=== PATIENT | male | born 1945 | race Caucasian/White ===

== ENCOUNTER 2017-10-28 07:03 | Day surgery (SDC) | payer MEDICARE ==
[2017-10-26 15:49] LABS: BASOPHILS # (AUTO) 0.1 X10'3 (0-0.2); BASOPHILS % (AUTO) 0.8 % (0-1); EOSINOPHILS # (AUTO) 0.3 X10'3 (0-0.9); EOSINOPHILS % (AUTO) 2.2 % (0-6); LYMPHOCYTES # (AUTO) 2.5 X10'3 (1.1-4.8); LYMPHOCYTES % (AUTO) 21.9 % (21-51); MEAN CORPUSCULAR HEMOGLOBIN 33.2 PG (27.0-31.0); MEAN CORPUSCULAR HGB CONC 34.5 % (33.0-36.5); MEAN CORPUSCULAR VOLUME 96.4 FL (78-98); MEAN PLATELET VOLUME 7.8 FL (7.4-10.4); MONOCYTES # (AUTO) 0.6 X10'3 (0-0.9); MONOCYTES % (AUTO) 5.6 % (2-12); NEUTROPHILS % (AUTO) 69.5 % (42-75); PRE OP HEMATOCRIT 44.8 % (42.0-52.0); PRE OP HEMOGLOBIN 15.4 g/dL (14.0-17.9); PRE OP PLATELET COUNT 208 X10'3 (140-440); RED BLOOD COUNT 4.64 X10'6 (4.70-6.10); RED CELL DISTRIBUTION WIDTH 14.5 % (11.5-14.5)
[2017-10-26 15:59] LABS: CLARITY,URINE SLIGHTLY CLOUDY (Clear); COLOR,URINE YELLOW (Yellow); GLUCOSE, URINE NEGATIVE (Neg); KETONES,URINE TRACE mg/dl (Neg); LEUKOCYTE ESTERASE ,URINE SMALL (Neg); NITRITES, URINE NEGATIVE (Neg); OCCULT BLOOD,URINE NEGATIVE (Neg); PROTEIN,URINE NEGATIVE (Neg)
[2017-10-26 16:04] LABS: ALBUMIN 3.4 G/DL (3.4-5.0); ALBUMIN/GLOBULIN RATIO 0.9 (1.1-1.5); ALKALINE PHOSPHATASE 79 IU/L (46-116); BLOOD UREA NITROGEN 23 MG/DL (7-18); BUN/CREATININE RATIO 21.7 (5.4-32.0); CALCIUM 8.8 MG/DL (8.5-10.1); CHLORIDE 102 MMOL/L (99-107); CREATININE 1.06 MG/DL (0.60-1.10); PRE OP ALT 19 U/L (30-65); PRE OP ANION GAP 6 (8-16); PRE OP AST 16 U/L (10-37); PRE OP BILIRUB, TOTAL 0.4 MG/DL (0.0-1.0); PRE OP GLUCOSE 94 MG/DL (70-104); PRE OP SODIUM 136 MMOL/L (135-145); TOTAL PROTEIN 7.2 G/DL (6.4-8.2); eGFR 69 ML/MIN
[2017-10-26 16:06] LABS: UA COLLECTION TYPE CLN CATCH MIDSTREAM
[2017-10-26 16:13] LABS: MUCUS STRANDS MANY /LPF (Neg); SQUAMOUS EPITHELIAL CELL,UR FEW /LPF (FEW)
[2017-10-26 16:14] LABS: BACTERIA,URINE NONE SEEN /HPF (Neg); RBC,URINE 0-2 /HPF (0-2)
[2017-10-28] VITALS (18 sets, daily range): BP systolic 112–142; BP diastolic 62–91
[~2017-10-28] VITALS: Ht 172.7 cm; Wt 64.0 kg
[~2017-10-28 07:03] MED LIST: ALBU8.5H4 IH; ASPI-974 PO; ATOR40TA PO; BUDE10.23 IH; CHOL400T32 PO; Cefazolin 2GM/50ML dext iso,osmotic IVPB IV ONE; DILT120C62 PO; FAMO20TA8 PO; FOLI-43 PO; famotidine 20mg tablet PO ONE; ringers solution, lacted 1,000 ML IV SCH
[2017-10-28] MEDS ORDERED: albuterol 2.5 MG/3 ML nebule NEB ONE (07:45)
[2017-10-28] MEDS ORDERED: ceFAZolin 1000mg inj ONE (08:41)
[2017-10-28] MEDS ORDERED: BUPIVAcaine/PF 2.5mg/ml (0.25%) 10ml vial ONE (08:42)
[2017-10-28] MEDS ORDERED: ringers solution, lacted 1,000 ML IV SCH ×2 (09:03→09:41)
[2017-10-28] MEDS ORDERED: morphine 4 MG/ML inj SYRINge IV PRN ×4 (09:05→09:45)
[2017-10-28] MEDS ORDERED: meperidine/PF 25mg/ml syringe IV PRN ×3 (09:05)
[2017-10-28] MEDS ORDERED: proCHLORperazine 10 MG/2 ml inj IV PRN (09:05)
[2017-10-28] MEDS ORDERED: ondansetron/PF 4mg/2ml inj IV PRN ×2 (09:05→09:45)
[2017-10-28] MEDS ORDERED: dexamethasone sod phosphate 10mg/ml inj ONE (09:36)
[2017-10-28] MEDS ORDERED: sevoflurane 250ml liquid IH ONE (09:36)
[2017-10-28] MEDS ORDERED: neostigmine methylsulfate 1 MG/ML 10ml vial ONE (09:36)
[2017-10-28] MEDS ORDERED: ondansetron/PF 4mg/2ml inj ONE (09:36)
[2017-10-28] MEDS ORDERED: glycopyrrolate 0.2mg/ml inj ONE (09:36)
[2017-10-28] MEDS ORDERED: labetalol 20mg/4ml (5mg/ml) syringe IV PRN (09:45)
[2017-10-28] MEDS ORDERED: hydrALAZINE 20mg/ml inj. IV PRN (09:45)
[2017-10-28] MEDS ORDERED: fentaNYL/PF 50MCG/1 ML 2ML syringe IV PRN (09:45)
[2017-10-28] MEDS ORDERED: fentaNYL/PF 50MCG/1 ML 2ML syringe ONE (09:50)
[2017-10-28] MEDS ORDERED: midazolam 2 mg/2 ml injection ONE (09:51)
[2017-10-28] MEDS ORDERED: LIDOcaine 2% (20mg/ml) 5ml vial ONE (09:58)
[2017-10-28] MEDS ORDERED: rocuronium 10mg/ml inj IV ONE (09:58)
[2017-10-28] MEDS ORDERED: propofol inj 20 ML IV ONE (09:58)
[2017-10-28] MEDS: fentaNYL/PF 50MCG/1 ML 2ML syringe IV PRN ×2 (11:32→11:47)
== END 2017-10-28 13:25 | disposition home or self-care (01) ==
LOC: PAS 07:03
PROVIDERS: ATTEND Surgery
DX: K40.20 Bilateral inguinal hernia, without obstruction or gangrene, not specified as recurrent (principal); I10 Essential (primary) hypertension; I25.810 Atherosclerosis of coronary artery bypass graft(s) without angina pectoris; J44.9 Chronic obstructive pulmonary disease, unspecified; K21.9 Gastro-esophageal reflux disease without esophagitis; E78.5 Hyperlipidemia, unspecified; M06.9 Rheumatoid arthritis, unspecified; I65.23 Occlusion and stenosis of bilateral carotid arteries; M19.042 Primary osteoarthritis, left hand; Z72.89 Other problems related to lifestyle; Z92.21 Personal history of antineoplastic chemotherapy; Z87.891 Personal history of nicotine dependence; Z85.46 Personal history of malignant neoplasm of prostate; Z95.1 Presence of aortocoronary bypass graft; Z95.5 Presence of coronary angioplasty implant and graft; Z79.82 Long term (current) use of aspirin; Z79.899 Other long term (current) drug therapy; Z98.890 Other specified postprocedural states; Z82.3 Family history of stroke
CPT/HCPCS: 36415; 49650; 80053; 81001; 85025; 87088; 94640; A4315; A6257; A6258; C1781; J0690; J1100; J2001; J2250; J2405; J2704; J2710; J3010; J3490; J7120

== ENCOUNTER 2019-11-16 06:48 | Emergency (ER) | payer OTHER, MEDICARE ==
[~2019-11-16] VITALS: Ht 172.7 cm; Wt 70.5 kg
[~2019-11-16 06:48] MED LIST changes: -ALBU8.5H4 IH; +AMLO5TAB PO; +ASPI-1264 PO; -ASPI-974 PO; +CEFD300C3 PO; +CLOP75TA15 PO; -Cefazolin 2GM/50ML dext iso,osmotic IVPB IV ONE; -DILT120C62 PO; +LOSA50TA3 PO; +TIOT18CA3 INH; -famotidine 20mg tablet PO ONE; -ringers solution, lacted 1,000 ML IV SCH
[2019-11-16] MEDS ORDERED: LIDOcaine 2% 10ml TOPICAL JELLY (Urojet) MM ONE (10:35)
[2019-11-16 10:47] LABS: CLARITY,URINE CLOUDY (Clear); COLOR,URINE YELLOW (Yellow); GLUCOSE, URINE NEGATIVE (Neg); KETONES,URINE NEGATIVE (Neg); LEUKOCYTE ESTERASE ,URINE LARGE (Neg); NITRITES, URINE POSITIVE (Neg); OCCULT BLOOD,URINE LARGE (Neg); PROTEIN,URINE NEGATIVE (Neg)
[2019-11-16 10:48] LABS: UA COLLECTION TYPE CLN CATCH MIDSTREAM
--- NOTE | 2019-11-16 10:49 | NUR ---
Sonia Gooden Cell , please call her when he is ready to be discharged for a ride home.
[2019-11-16 11:02] LABS: WBC,URINE 30-50 /HPF (0-4)
[2019-11-16 11:03] LABS: BACTERIA,URINE 4+ /HPF (Neg); MUCUS STRANDS FEW /LPF (Neg); SQUAMOUS EPITHELIAL CELL,UR FEW /LPF (FEW)
[2019-11-16 11:04] LABS: WBC CLUMPS,URINE MODERATE /HPF (NEGATIVE)
[2019-11-16] MEDS ORDERED: nitrofuran/nitrofuran macrocrysal 100 MG capsule PO ONE (11:25)
[2019-11-16 11:48] VITALS: BP 131/80
== END 2019-11-16 12:17 | disposition home or self-care (01) ==
LOC: ER 06:49
DX: T83.038A Leakage of other urinary catheter, initial encounter (principal); I25.10 Atherosclerotic heart disease of native coronary artery without angina pectoris; E78.00 Pure hypercholesterolemia, unspecified; I10 Essential (primary) hypertension; J44.9 Chronic obstructive pulmonary disease, unspecified; Z72.89 Other problems related to lifestyle; Z79.82 Long term (current) use of aspirin; Z79.2 Long term (current) use of antibiotics; Z79.899 Other long term (current) drug therapy; Y84.9 Medical procedure, unspecified as the cause of abnormal reaction of the patient, or of later complication, without mention of misadventure at the time of the procedure; Y92.89 Other specified places as the place of occurrence of the external cause
CPT/HCPCS: 81001; 87077; 87088; 87186; 99283

== ENCOUNTER 2020-03-12 12:53 | Day surgery (SDC) | payer MEDICARE ==
[2020-03-05 14:16] LABS: BASOPHILS # (AUTO) 0.1 X10'3 (0-0.2); BASOPHILS % (AUTO) 0.7 % (0-1); EOSINOPHILS # (AUTO) 0.1 X10'3 (0-0.9); EOSINOPHILS % (AUTO) 0.8 % (0-6); LYMPHOCYTES # (AUTO) 1.5 X10'3 (1.1-4.8); MEAN CORPUSCULAR HEMOGLOBIN 32.6 PG (27.0-31.0); MEAN CORPUSCULAR HGB CONC 34.1 g/dL (33.0-36.5); MEAN CORPUSCULAR VOLUME 95.4 FL (78-98); MEAN PLATELET VOLUME 7.7 FL (7.4-10.4); MONOCYTES # (AUTO) 0.7 X10'3 (0-0.9); MONOCYTES % (AUTO) 4.8 % (2-12); NEUTROPHILS # (AUTO) 12.4 X10'3 (1.8-7.7); NEUTROPHILS % (AUTO) 83.7 % (42-75); PRE OP HEMATOCRIT 42.4 % (42.0-52.0); PRE OP HEMOGLOBIN 14.5 g/dL (14.0-17.9); PRE OP PLATELET COUNT 182 X10'3 (140-440); RED BLOOD COUNT 4.44 X10'6 (4.70-6.10); RED CELL DISTRIBUTION WIDTH 13.8 % (11.5-14.5)
[2020-03-05 14:31] LABS: ALBUMIN 3.1 G/DL (3.4-5.0); ALBUMIN/GLOBULIN RATIO 0.7 (1.1-1.5); ALKALINE PHOSPHATASE 98 IU/L (46-116); BLOOD UREA NITROGEN 21 MG/DL (7-18); BUN/CREATININE RATIO 26.3 (5.4-32.0); CALCIUM 8.8 MG/DL (8.5-10.1); CHLORIDE 99 MMOL/L (99-107); PRE OP ALT 49 U/L (30-65); PRE OP ANION GAP 7 (8-16); PRE OP AST 34 U/L (10-37); PRE OP BILIRUB, TOTAL 0.6 MG/DL (0.0-1.0); PRE OP GLUCOSE 99 MG/DL (70-104); PRE OP POTASSIUM 3.9 MMOL/L (3.4-5.1); PRE OP PROTIME 10.6 SECONDS (9.0-12.0); PRE OP SODIUM 132 MMOL/L (135-145); TOTAL CARBON DIOXIDE 25.9 MMOL/L (24-32); TOTAL PROTEIN 7.4 G/DL (6.4-8.2); eGFR > 90 ML/MIN
[2020-03-07 12:45] LABS: CLARITY,URINE CLOUDY (Clear); COLOR,URINE YELLOW (Yellow); GLUCOSE, URINE NEGATIVE (Neg); KETONES,URINE NEGATIVE (Neg); LEUKOCYTE ESTERASE ,URINE MODERATE (Neg); NITRITES, URINE NEGATIVE (Neg); OCCULT BLOOD,URINE TRACE-INTACT (Neg); PH,URINE 6.5 (4.8-8.0); PROTEIN,URINE NEGATIVE (Neg)
[2020-03-07 13:00] LABS: UA COLLECTION TYPE CLN CATCH MIDSTREAM
[2020-03-07 13:02] LABS: BACTERIA,URINE 4+ /HPF (Neg); MUCUS STRANDS FEW /LPF (Neg); SQUAMOUS EPITHELIAL CELL,UR MODERATE /LPF (FEW)
[2020-03-07 13:03] LABS: WBC CLUMPS,URINE MODERATE /HPF (NEGATIVE)
[2020-03-07 13:06] LABS: RBC,URINE 0-2 /HPF (0-2); WBC,URINE 50-100 /HPF (0-4)
[2020-03-07 13:07] LABS: RENAL CELLS, URINE FEW /HPF
[2020-03-12] VITALS (10 sets, daily range): BP systolic 120–143; BP diastolic 56–90
[~2020-03-12] VITALS: Ht 172.7 cm; Wt 69.4 kg
[~2020-03-12 12:53] MED LIST changes: +ALBU8.5H8 INH; -AMLO5TAB PO; -ATOR40TA PO; -CEFD300C3 PO; +FLO0.4C PO; +albuterol 2.5 MG/3 ML nebule NEB ONE; +ceFAZolin 2gm in dextrose, iso 50 ML IV ONE; +famotidine 20mg tablet PO ONE; +ringers solution, lacted 1,000 ML IV SCH
[2020-03-12] MEDS ORDERED: fentaNYL/PF 50MCG/1 ML 2ML syringe ONE (15:21)
[2020-03-12] MEDS ORDERED: midazolam 2 mg/2 ml injection ONE (15:21)
[2020-03-12] MEDS ORDERED: proCHLORperazine 10 MG/2 ml inj IV PRN (15:25)
[2020-03-12] MEDS ORDERED: meperidine/PF 25mg/ml syringe IV PRN ×3 (15:25)
[2020-03-12] MEDS ORDERED: acetaminophen 1,000mg/100ml IV 100 ML IV PRN (15:25)
[2020-03-12] MEDS ORDERED: hydrALAZINE 20mg/ml inj. IV PRN (15:25)
[2020-03-12] MEDS ORDERED: ringers solution, lacted 1,000 ML IV SCH (15:25)
[2020-03-12] MEDS ORDERED: ondansetron/PF 4mg/2ml inj IV PRN (15:25)
[2020-03-12] MEDS ORDERED: labetalol 20mg/4ml (5mg/ml) syringe IV PRN (15:25)
[2020-03-12] MEDS ORDERED: morphine 2 MG/ML inj. syringe IV PRN (15:25)
[2020-03-12] MEDS ORDERED: morphine 4 MG/ML inj SYRINge IV PRN (15:25)
[2020-03-12] MEDS ORDERED: propofol inj 20 ML IV ONE (16:29)
[2020-03-12] MEDS ORDERED: dexamethasone sod phosphate 4mg/ml inj. ONE (16:29)
[2020-03-12] MEDS ORDERED: ondansetron/PF 4mg/2ml inj ONE (16:29)
[2020-03-12] MEDS ORDERED: phenylephrine 10mg/ml inj. ONE (16:29)
[2020-03-12] MEDS ORDERED: LIDOcaine 2% (20mg/ml) 5ml vial ONE (16:29)
--- NOTE | 2020-03-12 16:35 | NUR ---
Received from OR via BED, accompanied by Anesthesiologist DR VARGHESE--- and report given by Anesthesiolgist. PATIENT A&OX4, DENIES PAIN, V/S WNL, NEUROVASCULAR CHECKS INTACT, 20G PIV RUE, SCD ON, F/C DRAINING CLEAR YELLOW URINE.
[2020-03-12] MEDS ORDERED: HYDROcodone/acetaminophen 5mg/325mg tablet PO ONE (17:50)
--- NOTE | 2020-03-12 18:05 | NUR ---
PATIENT A&OX4, NORCO GIVEN FOR PAIN SEE EMAR, V/S WNL, NEUROVASCULAR CHECKS INTACT, 20G PIV RUE D/C, SCD OFF, F/C DRAINING CLEAR YELLOW URINE . HANDOUT AND VERBAL INSTRUCTION GIVEN FOR F/C CARE AND MANAGEMENT. I HAVE REVIEWED D/C INSTRUCTIONS WITH PATIENT AND FAMILY AND THEY HAVE VERBALIZED UNDERSTANDING. PATIENT D/C HOME WITH ALL BELONGINGS AND FAMILY GAVE TRANSPORT HOME.PATIENT OFFERED MASK BUT REFUSED TO WEAR IT AT UPON D/C.
== END 2020-03-12 18:05 | disposition home or self-care (01) ==
LOC: PAS 12:53
PROVIDERS: ATTEND Student in an Organized Health Care Education/Training Program
DX: N35.011 Post-traumatic bulbous urethral stricture (principal); J44.9 Chronic obstructive pulmonary disease, unspecified; I25.10 Atherosclerotic heart disease of native coronary artery without angina pectoris; I11.9 Hypertensive heart disease without heart failure; Z85.46 Personal history of malignant neoplasm of prostate; Z79.82 Long term (current) use of aspirin; Z79.899 Other long term (current) drug therapy; Z98.890 Other specified postprocedural states; Z87.891 Personal history of nicotine dependence; Z95.1 Presence of aortocoronary bypass graft; Z79.01 Long term (current) use of anticoagulants; Z20.828 Contact with and (suspected) exposure to other viral communicable diseases
CPT/HCPCS: 36415; 52281; 80053; 81001; 82948; 85025; 85610; 85730; 86885; 86900; 86901; 87077; 87088; 87186; 87635; 93005; 94640; C1758; C1769; J1100; J2001; J2250; J2370; J2405; J2704; J3010; A4618; J0690; J7120

== ENCOUNTER 2020-12-29 07:00 | Inpatient (IN) | payer MEDICARE ==
[~2020-12-29] VITALS: Ht 172.7 cm; Wt 58.0 kg
[~2020-12-29 07:00] MED LIST changes: +ALBU8.5H17 INH; -ALBU8.5H8 INH; -albuterol 2.5 MG/3 ML nebule NEB ONE; -ceFAZolin 2gm in dextrose, iso 50 ML IV ONE; -famotidine 20mg tablet PO ONE; -ringers solution, lacted 1,000 ML IV SCH
[2020-12-29] MEDS ORDERED: dexamethasone sod phosphate 10mg/ml inj IV STA (07:15)
[2020-12-29] MEDS ORDERED: methylPREDNISolone sod succ 125mg/2ml vial IV ONE (07:15)
[2020-12-29] MEDS ORDERED: ipratropium/albuterol 3ml nebule NEB ONE (07:15)
[2020-12-29 07:20] LABS: ABG BASE EXCESS -5.1 mmol/L (-2.0-2.0); ABG HCO3 17.8 mmol/L (22.0-26.0); ABG PCO2 (T) 25.5 mmHg (35.0-48.0); ABG PO2 (T) 86.2 mmHg (75.0-100.0); ALLEN'S TEST POSITIVE; FCOHb 1.2 % (0.0-3.9); FLOW 15 L/min; FMetHb 0.1 % (0.0-1.5); FO2Hb 94.8 % (94-97); TOTAL HEMOGLOBIN 8.5 G/dl (14.0-18.0)
[2020-12-29] MEDS ORDERED: ipratropium/albuterol 3ml nebule ONE (07:34)
--- NOTE | 2020-12-29 07:50 | NUR ---
PT'S CALLED FOR STATUS UPDATE. WAS INFORMED THAT PT IS GETTING SETTLED IN. 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 HAS GIVEN PERMISSION FOR INFORMATION REGARDING HIS STATUS DURING HIS HOSPITAL STAY TO HIS , PAT
[2020-12-29 07:53] LABS: BASOPHILS % (AUTO) 0 % (0-1); EOSINOPHILS % (AUTO) 0.2 % (0-6); LYMPHOCYTES # (AUTO) 0.4 X10'3 (1.1-4.8); LYMPHOCYTES % (AUTO) 3.6 % (21-51); MEAN CORPUSCULAR HEMOGLOBIN 29.3 PG (27.0-31.0); MEAN CORPUSCULAR VOLUME 91.7 FL (78-98); MEAN PLATELET VOLUME 7.4 FL (7.4-10.4); MONOCYTES # (AUTO) 0.1 X10'3 (0-0.9); MONOCYTES % (AUTO) 0.5 % (2-12); NEUTROPHILS # (AUTO) 11.3 X10'3 (1.8-7.7); NEUTROPHILS % (AUTO) 95.7 % (42-75); PLATELET COUNT 283 X10'3 (140-440); RED BLOOD COUNT 2.72 X10'6 (4.70-6.10); RED CELL DISTRIBUTION WIDTH 16.8 % (11.5-14.5); WHITE BLOOD COUNT 11.8 X10'3 (4.5-11.0)
[2020-12-29 08:09] LABS: ALANINE AMINOTRANSFERASE 66 U/L (12-78); ALBUMIN 1.3 G/DL (3.4-5.0); ALBUMIN/GLOBULIN RATIO 0.2 (1.1-1.5); ALKALINE PHOSPHATASE 397 IU/L (46-116); ANION GAP 16 (8-16); ASPARTATE AMINO TRANSFERASE 116 U/L (10-37); BILIRUBIN,TOTAL 1.1 MG/DL (0.1-1.0); BLOOD UREA NITROGEN 31 MG/DL (7-18); BUN/CREATININE RATIO 21.5 (5.4-32.0); CALCIUM 8.3 MG/DL (8.5-10.1); CHLORIDE 103 MMOL/L (99-107); CREATININE 1.44 MG/DL (0.60-1.10); GLUCOSE 52 MG/DL (70-104); POTASSIUM 3.8 MMOL/L (3.5-5.1); SODIUM 140 MMOL/L (135-145); TOTAL PROTEIN 6.9 G/DL (6.4-8.2); eGFR 48 ML/MIN
[2020-12-29 08:17] LABS: C-REACTIVE PROTEIN 20.12 MG/DL (0.0-0.5)
[2020-12-29] MEDS ORDERED: albuterol 2.5 MG/3 ML nebule CONTNEB PRN (08:20)
--- NOTE | 2020-12-29 09:13 | NUR ---
[facility] [phone]
--- NOTE | 2020-12-29 09:25 | NUR ---
patient receiving continuous breathing treatment.
--- NOTE | 2020-12-29 09:49 | NUR ---
patient repositioned and changed BM x1, pt incontinent,noted a large unstageable pressure ulcer to coccyx area,pateint reports able to ambulate independently at home, Dr. Workman at bedside, picture taken.pillow to right side.call lgiht within reach.MD to order 1 bolus of NS to be admin prior ct.
[2020-12-29] MEDS ORDERED: iohexol 300mg/ml 100ml inj. ONE (09:50)
[2020-12-29] MEDS ORDERED: piperacillin/tazo 3.375gm/50ml 50 ML IV ONE (09:55)
[2020-12-29] MEDS ORDERED: vancomycin/NS 1 GM ADD-VANTAGE 250 ML IV ONE (09:55)
--- NOTE | 2020-12-29 10:30 | NUR ---
BP low, 70/39mmhg taken 3x still with low SBP, taken bp manually bp 70/60mmhg.Dr. Chacon aware, pt receiving bolus of NS and zosyn, will monitor and rechecked after bolus.
--- NOTE | 2020-12-29 11:00 | NUR ---
pt to ct.
--- NOTE | 2020-12-29 11:22 | NUR ---
dR. Clarke AT BEDSIDE.
--- NOTE | 2020-12-29 11:32 | NUR ---
Dr. Alfaro talking to spouse on the phone,spouse to come to ed,will have a conference in bed 5 when spouse gets here re: potential comfor care admit.Dr. Workman at bedside.
--- NOTE | 2020-12-29 11:46 | NUR ---
hold off levophed for now per Dr. Workman, spouse on her way for MD patient conference.
--- NOTE | 2020-12-29 12:00 | NUR ---
DR. HUGHES AT BEDSIDE WITH PT AND SON KM. DISCUSSED SURGERY WITH DR. NEUMANN AND RECOVERY, R,B,A. PT IS GOING ON PALLATIVE CARE. WILL SPEAK WITH HOSPITALIST ABOUT PROCESS.
[2020-12-29] MEDS ORDERED: morphine 2 MG/ML inj. syringe IV PRN ×2 (12:20→15:35)
[2020-12-29] MEDS ORDERED: morphine 4 MG/ML inj SYRINge IV ONE (12:20)
--- NOTE | 2020-12-29 12:37 | NUR ---
called pharmacy [facility] for morphine to be verified.Spouse and son in the room.
[2020-12-29] MEDS ORDERED: morphine ORAL 5MG/0.25 ML (Conc. morphine) oral syringe PO PRN (15:35)
[2020-12-29] MEDS ORDERED: acetaminophen 325mg tablet PO PRN (15:35)
[2020-12-29] MEDS ORDERED: LORazepam 2 mg/ml vial IV PRN (15:35)
[2020-12-29] MEDS ORDERED: HYDROcodone/acetaminophen 10/325mg tab PO PRN (15:35)
[2020-12-29] MEDS ORDERED: HYDROcodone/acetaminophen 5mg/325mg tablet PO PRN (15:35)
[2020-12-29] MEDS ORDERED: ondansetron/PF 4mg/2ml inj IV PRN (15:35)
--- NOTE | 2020-12-29 15:41 | NUR ---
dressing changed to sacral decub.
--- NOTE | 2020-12-29 15:41 | NUR ---
patient turned and changed, also assisted patient on a hospital bed.spouse at bedside.pillow to right side.
--- NOTE | 2020-12-29 16:51 | NUR ---
REQUESTED COMFORT CARE CART FROM DIETARY.
--- NOTE | 2020-12-29 18:40 | NUR ---
Carol MANorthopedic surgeon nurse not available at this time.
--- NOTE | 2020-12-29 18:55 | NUR ---
Received report from DONOVAN Shields. Awaiting patient arrival to the floor.
[2020-12-29 19:25] VITALS: BP 81/57
[2020-12-29] MEDS ORDERED: temazepam 15mg capsule PO PRN (21:00)
[2020-12-29] MEDS: HYDROmorphone inj. 0.5 MG/0.5 ML DISP.SYRIN IV PRN (21:26)
[2020-12-30] MEDS: HYDROmorphone inj. 0.5 MG/0.5 ML DISP.SYRIN IV PRN ×2 (02:30→07:26)
--- NOTE | 2020-12-30 06:15 | NUR ---
Problems reprioritized. Patient report given, questions answered & plan of care reviewed with Ramy Student Nurse and DONOVAN Garcia.
--- NOTE | 2020-12-30 06:30 | NUR ---
Report received from GE contreras RN.
--- NOTE | 2020-12-30 09:24 | NUR ---
PAGER ID: [phone] MESSAGE: [id number] Almas Gooden comfort care patient is requiring pain medications more frequently than the q4h that is ordered. Can I get an order for Q2H? Radha [phone] Addendum: 12/30/20 at 0926 by Radha Nassar RN order received to change pain medication to Q2H, Will make changes in orders.
[2020-12-30] MEDS ORDERED: morphine 10mg/0.5ml (conc. morphine) oral syringe PO PRN (09:30)
[2020-12-30] MEDS ORDERED: morphine ORAL 5MG/0.25 ML (Conc. morphine) oral syringe PO PRN (09:30)
[2020-12-30] MEDS: morphine 10mg/0.5ml (conc. morphine) oral syringe PO PRN ×5 (12:25→18:37)
[2020-12-30] MEDS: scopolamine 1mg/72 hr patch TD SCH (15:39)
--- NOTE | 2020-12-30 18:48 | NUR ---
Patient in room [facility] 348. I have received report from Radha MAN and had the opportunity to ask questions and assume patient care.
[2020-12-30 20:25] VITALS: BP 86/59
[2020-12-31] MEDS: morphine 10mg/0.5ml (conc. morphine) oral syringe PO PRN ×4 (05:24→17:41)
--- NOTE | 2020-12-31 06:57 | NUR ---
Patient in room [facility] 348. I have received report from Abdelrahman MAN and had the opportunity to ask questions and assume patient care.
--- NOTE | 2020-12-31 07:05 | NUR ---
Problems reprioritized. Patient report given, questions answered & plan of care reviewed with Crystal MAN.
--- NOTE | 2020-12-31 07:26 | NUR ---
Initial: Pt admitted w/ septic shock from necrotizing fasciitis as well as fungating, ulcerating mass in the sacral and perineal area per EMR. Pt placed on Comfort Care measures. Pt w/ 0% intake. [facility] 12/30. No nutrition intervention implemented at this time. Will continue to monitor. Recs: 1. Bowel care per rx Addendum: 12/31/20 at [address] Amended: Links added.
[2020-12-31 08:00] VITALS: BP 81/53
[2020-12-31] MEDS ORDERED: ATOR10TA70 PO (10:42)
[2020-12-31] MEDS ORDERED: TIOT4MIS5 IH (10:42)
--- NOTE | 2020-12-31 12:35 | NUR ---
PAGER ID: [phone] MESSAGE: RE: ROOM 348B MAKAYLA CABELLO THERE ARE MANY NEW MED ORDERS IN THIS PT'S EMAR......BUT HE IS COMFORT CARE. DID YOU MEAN TO ORDER THESE FOR THIS PATIENT? THANK YOU, YASMEEN MARTINS/SURG [phone] WILL CONTINUE TO MONITOR.
[2020-12-31] MEDS ORDERED: albuterol 2.5 MG/3 ML nebule NEB PRN (12:40)
--- NOTE | 2020-12-31 12:48 | NUR ---
PHONE CALL FROM DR JEAN MD STATES NEW MED ORDERS WERE IN ERROR AND SHE WILL CANCEL. WILL CONTINUE TO MONITOR.
[2020-12-31] MEDS ORDERED: albuterol 2.5 MG/3 ML nebule NEB SCH (14:00)
[2020-12-31] MEDS ORDERED: acetaminophen 325mg tablet PO PRN (14:07)
[2020-12-31] MEDS: HYDROmorphone inj. 0.5 MG/0.5 ML DISP.SYRIN IV PRN (18:41)
--- NOTE | 2020-12-31 19:07 | NUR ---
Problems reprioritized. Patient report given, questions answered & plan of care reviewed with Abdelrahman MAN.
--- NOTE | 2020-12-31 19:14 | NUR ---
Patient in room [facility] 348. I have received report from Crystal MAN and had the opportunity to ask questions and assume patient care.
[2020-12-31] MEDS ORDERED: budesonide 0.5mg/2ml UD nebule IH SCH (20:00)
[2021-01-01] MEDS: morphine 10mg/0.5ml (conc. morphine) oral syringe PO PRN (02:09)
[2021-01-01] MEDS: LORazepam 2 mg/ml vial IV PRN ×2 (02:44→22:24)
[2021-01-01] MEDS: Dakins solution (1/4 strength) 473ml solution TP SCH ×3 (02:44→20:00)
[2021-01-01] MEDS: HYDROmorphone inj. 0.5 MG/0.5 ML DISP.SYRIN IV PRN ×4 (03:12→20:27)
--- NOTE | 2021-01-01 07:22 | NUR ---
Problems reprioritized. Patient report given, questions answered & plan of care reviewed with Concepción MAN.
[2021-01-01 08:00] VITALS: BP 107/55
[2021-01-01] MEDS ORDERED: tamsulosin 0.4mg capsule PO SCH (08:00)
[2021-01-01] MEDS ORDERED: clopidogrel 75mg tablet PO SCH (08:00)
[2021-01-01] MEDS ORDERED: non-formulary drug (Tiotropium Bromide (Spiriva Respimat) 2 PUFFS) IH SCH (08:00)
[2021-01-01] MEDS ORDERED: famotidine 20mg tablet PO SCH (08:00)
[2021-01-01] MEDS ORDERED: folic acid 1mg tablet PO SCH (08:00)
[2021-01-01] MEDS ORDERED: cholecalciferol (vitamin D3) 400 unit (10mcg) tablet PO SCH (08:00)
[2021-01-01] MEDS ORDERED: losartan 50mg tablet PO SCH (08:00)
[2021-01-01] MEDS ORDERED: atorvastatin 10mg tablet PO SCH (08:00)
[2021-01-01] MEDS: morphine 2 MG/ML inj. syringe IV PRN ×2 (10:58→16:08)
--- NOTE | 2021-01-01 17:01 | NUR ---
Family member (spouse) requesting for minimal movement and treatment due to the pt. being uncomfortable and not tolerating well- even after pain medication. Addendum: 01/01/21 at 1703 by Concepción Coulter RN Amended: Links added.
--- NOTE | 2021-01-01 18:39 | NUR ---
Gave report to Abdelrahman MAN.
--- NOTE | 2021-01-01 18:48 | NUR ---
Patient in room [facility] 348. I have received report from Concepción MAN and had the opportunity to ask questions and assume patient care.
[2021-01-02] MEDS: morphine 2 MG/ML inj. syringe IV PRN ×2 (02:12→08:21)
[2021-01-02] MEDS: HYDROmorphone inj. 0.5 MG/0.5 ML DISP.SYRIN IV PRN ×2 (05:55→10:11)
--- NOTE | 2021-01-02 07:00 | NUR ---
Problems reprioritized. Patient report given, questions answered & plan of care reviewed with Misha MAN.
--- NOTE | 2021-01-02 07:04 | NUR ---
Patient in room [facility] 348. I have received report from DONOVAN Quick and had the opportunity to ask questions and assume patient care.
[2021-01-02] MEDS: Dakins solution (1/4 strength) 473ml solution TP SCH (08:00)
[2021-01-02 10:28] VITALS: BP 61/33
--- NOTE | 2021-01-02 10:42 | NUR ---
Unable to assess pupils and wound on buttock due to 's request to keep patient comfortable. Did oral care with swabs in water
--- NOTE | 2021-01-02 10:44 | NUR ---
unable to assess pupils and wound on buttock due to 's request to keep patient comfortable. Did oral care with swabs in water. -KM Addendum: 01/02/21 at 1045 by Umu Beyer - Student RIRI Amended: Links added.
--- NOTE | 2021-01-02 11:40 | NUR ---
PAGER ID: [phone] MESSAGE: [phone]- Jesús Gooden- ok for nursing to pronounce at time of ? patient passed at 1133.- [facility] 2818
--- NOTE | 2021-01-02 11:50 | NUR ---
RN IS TO DOCUMENT YES TO ALL APPLICABLE AREAS Pronouncement of : 1. Time Physician Notified: Dr. Arriaga 2. Date of : 01/02/21 3. Time of : 113 4. DNR/Withdraw life support documented: Y 5. Monitor strip has been placed on chart: Y 6. Assessment process is of one-minute duration and includes following criteria: a) Patient is unresponsive to all stimuli: Y b) Pupils fixed and non-reactive: Y c) Auscultation of precordium reveals absence of heart tones: Y d) Auscultation of lungs reveals absence of breath sounds: Y e) Absence of blood pressure / all vital signs: Y f) QRS complexes are not present on monitor / EKG strip: Y g) Pacer spikes without capture: 4. Comments:
--- NOTE | 2021-01-02 11:52 | NUR ---
Notified by patient's spouse that patient had passed and taken his last breath .Assessed patient. Patient unresponsive to all stimuli. No heart/lung sounds, pupils fixed and non reactive, EKG shows asystole on strip. Dr Arriaga notified and [facility] called.
--- NOTE | 2021-01-02 12:10 | NUR ---
[facility] in [place], [place] notified.
[2021-01-02] MEDS: scopolamine 1mg/72 hr patch TD SCH (13:45)
--- NOTE | 2021-01-02 16:09 | NUR ---
Patient body picked up by [facility]. Patient had no belongings.
== END 2021-01-02 15:55 | DRG 871 ==
LOC: ER 07:01 → ED HOLD 15:37 → SUR 3N 19:21
PROVIDERS: ADMIT Family Medicine; ATTEND Family Medicine
PROC: BW211ZZ Computerized Tomography (CT Scan) of Abdomen and Pelvis using Low Osmolar Contrast (ICD-10-PCS; principal; 2020-12-29)
DX: A41.9 Sepsis, unspecified organism (principal); R65.21 Severe sepsis with septic shock; M72.6 Necrotizing fasciitis; K65.1 Peritoneal abscess; J96.01 Acute respiratory failure with hypoxia; R64 Cachexia; J44.1 Chronic obstructive pulmonary disease with (acute) exacerbation; N13.6 Pyonephrosis; K62.6 Ulcer of anus and rectum; Z68.1 Body mass index [BMI] 19.9 or less, adult; E11.9 Type 2 diabetes mellitus without complications; F17.200 Nicotine dependence, unspecified, uncomplicated; Z66 Do not resuscitate; K57.90 Diverticulosis of intestine, part unspecified, without perforation or abscess without bleeding; Z20.822 Contact with and (suspected) exposure to COVID-19; E78.00 Pure hypercholesterolemia, unspecified; E78.5 Hyperlipidemia, unspecified; I10 Essential (primary) hypertension; I25.10 Atherosclerotic heart disease of native coronary artery without angina pectoris; K62.89 Other specified diseases of anus and rectum; Z51.5 Encounter for palliative care; Z85.46 Personal history of malignant neoplasm of prostate; Z92.3 Personal history of irradiation; Z95.1 Presence of aortocoronary bypass graft
CPT/HCPCS: 36415; 36600; 71045; 74177; 80053; 82803; 83605; 83880; 84145; 84484; 85018; 85025; 85610; 86140; 87040; 87077; 87186; 87502; 87503; 87635; 93005; 94640; 94760; 96365; 96368; 96375; 99291; 99292; A7015; C9803; G0378; J1100; J1170; J2060; J2270; J2405; J2543; J3370; Q9967